=== PATIENT | female | born 1975 | race Caucasian/White ===

== ENCOUNTER 2020-03-10 11:25 | Outpatient (CLI) | payer MEDICAID, SELFPAY ==
--- NOTE | 2020-03-10 12:30 | XRR_ITS ---
PROCEDURE INFORMATION: Exam: XR Abdomen, 1 View Exam date and time: 03/10/2020 11:31 AM Age: 44 years old Clinical indication: Condition or disease; Kidney or ureter condition; Calculus (stone) in kidney; Prior surgery; Surgery type: Hyst, gb, lith; Additional info: Recurrent stones, f/u RT stone TECHNIQUE: Imaging protocol: XR of the abdomen. Views: Frontal supine view of the abdomen. 1 View. COMPARISON: CR XR KUB [id number] 08/05/2019 10:50 AM FINDINGS: Gastrointestinal tract: There is mildly increased stool noted in the ascending colon. Organs: Previously demonstrated right renal pelvic calculus not currently identified. The gallbladder is surgically absent, with metallic clips in the gallbladder fossa. Vasculature: Calcified phleboliths are present in the lower pelvis bilaterally. Bones/joints: No acute abnormality identified. XR/XR KUB [id number] IMPRESSION: 1. Previously demonstrated right renal pelvic calculus not currently radiographically identified. 2. Mild right abdominal colonic constipation. 3. Prior cholecystectomy.
== END 2020-03-10 11:26 | disposition home or self-care (01) ==
LOC: RAD 11:28
PROVIDERS: PCP Nurse Practitioner Family; Visit Provider Nurse Practitioner Family
DX: N20.0 Calculus of kidney (principal); K59.00 Constipation, unspecified
CPT/HCPCS: 74018; 81001

== ENCOUNTER 2020-03-11 09:39 | Outpatient (CLI) | payer MEDICAID, SELFPAY ==
--- NOTE | 2020-03-11 09:41 | CT_ITS ---
WS: [id number] CT ABDOMEN PELVIS TECHNIQUE: Noncontrast CT of the abdomen and pelvis with coronal and sagittal reformatted images. CLINICAL INFORMATION: Right flank pain COMPARISON: December 10, 2019 DLP: 1880.[address] scans at [facility] use at least one of these dose optimization techniques: automat ed exposure control; mA and/or kV adjustment per patient size (includes targeted exams where dose is matched to clinical indication); or iterative reconstruction. FINDINGS: Stable calculus right renal pelvis measuring 8.6 mm. This is unchanged from previous. Mild dilatation right renal pelvis is unchanged. Right ureter is decompressed. No obstructing left renal or ureteral parenchymal calculi. Left pelvic phlebolith adjacent to the left distal ureter. Right ovarian low-attenuation lesion likely ovarian cyst measuring 3.1 cm unchanged. This can be foll owed up with ultrasound. Normal sigmoid colon. No evidence of small or large bowel obstruction. Lung bases are well aerated. Calcific granuloma left lower lobe. Noncontrast liver is normal. Cholecy stectomy clips. Normal GE junction. Noncontrast spleen is normal. Normal adrenal glands. Noncontrast pancreas is unremarkable. Slight haziness along the mid mesentery with a few prominent lymph nodes al gracia the mesenteric root. This is unchanged. CT/CT kidney stone [id number] IMPRESSION: 1. Stable 8.6 mm right renal pelvic calculus. Mild dilatation right renal pelv is. 2. Prior cholecystectomy. 3. Haziness along the mid mesentery at the mesenteric root with a few prominen t lymph nodes unchanged from previous. 4. Right ovarian low-attenuation lesion measuring 3.1 cm likely ovarian cyst. This can be followed up with ultrasound. 5. No significant interval changes.
== END 2020-03-11 09:40 | disposition home or self-care (01) ==
LOC: RAD 09:40
PROVIDERS: PCP Nurse Practitioner Family; Visit Provider Nurse Practitioner Family
DX: R10.9 Unspecified abdominal pain (principal); N20.0 Calculus of kidney; N83.8 Other noninflammatory disorders of ovary, fallopian tube and broad ligament
CPT/HCPCS: 74176

== ENCOUNTER 2020-03-18 10:49 | Day surgery (SDC) | payer MEDICAID, SELFPAY ==
[2020-03-17 09:25] VITALS: BMI 35.5
[2020-03-18] VITALS (9 sets, daily range): BP systolic 129–150; BP diastolic 88–110; PULSE 88–102; RESP 14–24; TEMP 36.2–36.9; O2SAT 94–100
--- NOTE | 2020-03-18 11:40 | ANES.PREANE2 ---
Pre-Anesthetic Assessment Pre-Anesthetic Assessment: Height/Weight: Height 1.68 m Weight 99.79 kg Temp Pulse Resp BP Pulse Ox 97.8 F 91 18 129/88 98 03/18/20 11:21 03/18/20 11:21 03/18/20 11:21 03/18/20 11:21 03/18/20 11:21 Preop Diagnosis: Right renal colicky symptoms, renal pelvic stone Proposed Procedure: Operation Date: 03/18/20 12:30 Proposed Procedures p CYSTOSCOPY,RIGHT,RETROGRADE URETEROSCOPY,LASER,STENT [id number] MODIFIER 26/N20.0(Right) - Branden Gupta MD s RETROGRADE URETEROSCOPY(Right) - MD carleen tSarks Laser Lithotripsy(Right) - MD carleen Starks Ureteral Stent Placement(Right) - Branden Gupta MD Social: Social History: No alcohol and No tobacco Exam: Pre-Anes Outpt Exam: alert, oriented x 3, clear to auscultation bilaterally and regular rate & rhythm Airway: Submandibular: WNL Cervical ROM: WNL MP: 2 Dentition: Other (teeth ok) History/ROS: No significant history except as noted CV/HEM: CV/HEM: HTN : Comments: stones Hepatic: Comments: fatty liver GI: GI: GERD (controlled) Metabolic: Metabolic: DM and Hyperlipidemia Neuropsych: Neuropsych: None reported Anesthetic Plan: ASA status: 3 Anesthesia: Anesthesia Evaluation and General Risk of > 500 ml blood loss (7ml/kg in children): No PFSH Anesthesia PFSH: Medical History Right nephrolithiasis Uric acid urolithiasis Surgical History History of hysterectomy Hx of cholecystectomy Status post laser lithotripsy of ureteral calculus Family History Father Hypertension Diabetes CAD (coronary artery disease) Grandmother Cancer Grandfather Cancer Social History Smoking and tobacco status: never smoked Alcohol intake: never Adopted: No Caregiver/support person: No Lives independently: No Household members: spouse Marital status: Current occupational status: unemployed History of recent travel: No Current gender identity: Female Data Anesthesia Cardiac Studies: No Data to Display
[2020-03-18 11:56] LABS: Glucose Point of Care 191 mg/dL (70-110)
[2020-03-18] MEDS: sodium chloride 0.9% 1,000 ML 30 ML IV (12:01)
--- NOTE | 2020-03-18 12:58 | W.PM.OPSUD ---
Surgery/Procedure H&P Update DATE OF PROCEDURE: March 18, 2020 DATE H&P PERFORMED: 03/11/20 H&P UPDATE INFORMATION: I have reviewed H&P completed within last 30 days, No changes to prior documentation and H&P is in [facility] on date indicated PREOP DIAGNOSIS: Right renal colicky symptoms, renal pelvic stone PLANNED PROCEDURE: Operation Date: 03/18/20 12:30 Proposed Procedures p CYSTOSCOPY,RIGHT,RETROGRADE URETEROSCOPY,LASER,STENT [id number] MODIFIER 26/N20.0(Right) - Branden Gupta MD s RETROGRADE URETEROSCOPY(Right) - Branden Gupta MD s Laser Lithotripsy(Right) - MD carleen Starks Ureteral Stent Placement(Right) - Branden Gupta MD
[2020-03-18] MEDS: levofloxacin-dextrose 5 % 500 MG/100 ML PREMIX 100 MG IV (12:59)
--- NOTE | 2020-03-18 13:01 | P.OP_ITS ---
Operative Report Date of procedure: March 18, 2020 Pre-op Diagnosis: Right renal colicky symptoms, renal pelvic stone Post-op diagnosis: same Procedure Done: 1. Cystoscopy, right retrograde, ureteroscopic laser lithotripsy, stent Surgeon: Alonso Anesthesia: General Estimated blood loss: Minimal Urine output: Not measured Complications: None Condition: stable Disposition: PACU Brief History: The patient is a 44-year-old white female with history of recurrent urolithiasis stones who presents with intermittent right renal colicky symptoms and was found to have a radiolucent 8.6 mm renal pelvic stone. She preferred to have the stone treated. We reviewed treatment options including ESWL versus endoscopy. Based on body habitus and inability to easily identify the stone on fluoroscopy it was decided to proceed with endoscopic treatment with backup ESWL if necessary. Procedure: After routine preoperative evaluation examination and obtaining of informed consent she was taken to the operating suite on 03/18/2020 where general anesthesia was administered without difficulty after appropriate timeout was performed, SCDs confirmed to be functioning, preoperative antibiotics administered, beta-frantz protocol confirmed. Prepped and draped in usual sterile fashion in dorsolithotomy position pain careful attention to avoiding pressure points. 21 [place] cystoscope with 30 degree lens was introduced to the urethra meatus and advanced into the bladder under videoscopy. Bladder was systematically examined found to be within normal limits. A flexible tip guidewire was easily advanced up the right ureter and the distal ureter was dilated with a 15 [place] 4 cm balloon with no waist. A second guidewire was passed and then a 38 cm ureteral access sheath was advanced over the guidewire just below the UPJ. A flexible ureteroscope was advanced up the right ureter through the sheath into the renal pelvis over the working wire. The other wire had been secured to the drapes as a safety wire. The stone was identified and fragmented with a 273 ?m homing laser fiber into small enough pieces that should easily pass. A 2.0 [place] 0 tip basket was utilized to remove some of the fragments for specimen. There was a lot of sand in the collecting system and much of this was flushed through the ureteroscope out of the patient. The sheath was then backed off the scope onto the hub and the ureter was inspected as the scope was removed with no significant fragments identified. The cystoscope was backloaded over the safety wire and a 6 [place] by 26 cm double-pigtail stent was advanced over the guidewire through the cystoscope into appropriate position as confirmed via fluoroscopy and cystoscopy. Bladder was drained and the procedure completed. She tolerated the procedure well without complications and was awakened in the operating room and returned to the recovery room in stable condition. PLANS: 1. Discharge from outpatient surgery when recovered 2. Follow-up in approximately 1 week for stent removal with cystoscopy 3. Continue POTASSIUM CITRATE 15 mill equivalents twice a day
--- NOTE | 2020-03-18 14:12 | SUR.PHASEI ---
1407 PATIENT TO PACU AT THIS TIME FROM OR. RR EVEN AND UNLABORED. PLACED ON SIMPLE MASK AT 8L, SPO2 98%.
--- NOTE | 2020-03-18 14:41 | SUR.PHASEI ---
1433 PATIENT TO OPS AT THIS TIME. DENIES PAIN. RR EVEN AND UNLABORED.
== END 2020-03-18 15:20 | disposition home or self-care (01) ==
PROVIDERS: PCP Nurse Practitioner Family; Visit Provider Urology
PROC: 0TJB8ZZ Inspection of Bladder, Via Natural or Artificial Opening Endoscopic (ICD-10-PCS; CPT 52000; principal; 2020-03-18 12:30)
PROC: (CPT 52356; 2020-03-18 12:30)
PROC: (CPT 50605; 2020-03-18 12:30)
PROC: 0TJ98ZZ Inspection of Ureter, Via Natural or Artificial Opening Endoscopic (ICD-10-PCS; CPT 52351; 2020-03-18 12:30)
PROC: (CPT 74420; 2020-03-18 12:30)
DX: N20.0 Calculus of kidney (principal); I10 Essential (primary) hypertension; K21.9 Gastro-esophageal reflux disease without esophagitis; E11.9 Type 2 diabetes mellitus without complications; E78.5 Hyperlipidemia, unspecified; Z82.49 Family history of ischemic heart disease and other diseases of the circulatory system; Z83.3 Family history of diabetes mellitus; Z79.84 Long term (current) use of oral hypoglycemic drugs
CPT/HCPCS: 52356; 12345; 36416; 82962; 88300; C1725; C2625; J1956; J2704; J3010; J3490; J7030

== ENCOUNTER 2020-03-25 09:47 | Outpatient (CLI) | payer MEDICAID, SELFPAY ==
--- NOTE | 2020-03-25 10:00 | XR_ITS ---
WS: [id number] XR KUB [id number] REASON FOR EXAM: Stone FINDINGS: A stent is seen in the left kidney extends down to the bladder good position. No definite s tones are seen surrounding the stent. There is nonspecific abdominal findings. The left kidney appeared to be normal. XR/XR KUB [id number] IMPRESSION: Stent good position on the right side no obstructing stones are identified.
== END 2020-03-25 09:48 | disposition home or self-care (01) ==
LOC: RAD 09:50
PROVIDERS: PCP Nurse Practitioner Family; Visit Provider Urology
DX: N20.0 Calculus of kidney (principal); Z96.0 Presence of urogenital implants
CPT/HCPCS: 74018; 81001

== ENCOUNTER 2020-05-23 06:54 | Outpatient (CLI) | payer MEDICAID, SELFPAY ==
--- NOTE | 2020-05-23 07:19 | MM_ITS ---
WS: [id number] BILATERAL DIGITAL SCREENING MAMMOGRAPHY WITH CAD CLINICAL INFORMATION: SCREENING HISTORY: Screening mammogram. No current complaints. COMPARISON: None. TECHNIQUE: Bilateral CC and MLO views. FINDINGS: Scattered fibroglandular densities bilaterally. No suspicious focal mass, asymmetry, calcifications, or architectural distortion. No evidence of malignancy. Lucent centered calcifications. MM/[place] [id number] IMPRESSION: BI-RADS: 2-Benign FOLLOW UP: 1 Year Follow-up Recommend return to annual screening mammography.
== END 2020-05-23 06:55 | disposition home or self-care (01) ==
LOC: RADSHAW 06:58
PROVIDERS: PCP Nurse Practitioner Family; Visit Provider Nurse Practitioner Family
DX: Z12.31 Encounter for screening mammogram for malignant neoplasm of breast (principal); N20.0 Calculus of kidney
CPT/HCPCS: 77067; 80048; 81003; 82131; 82140; 82340; 82436; 82507; 82570; 83735; 83935; 84100; 84300; 84550

== ENCOUNTER 2023-05-17 14:38 | Emergency (ER) | payer BC, MEDICAID, SELFPAY ==
[2023-05-17 14:39] VITALS: BP 150/83; PULSE 93; RESP 18; TEMP 36.8; O2SAT 99; BMI 37.1
--- NOTE | 2023-05-17 14:44 | W.ED.ALLEREA ---
HPI - Allergic Reaction General: Chief complaint: Allergic Reaction Stated complaint: allergic reaction Time Seen by Provider: 05/17/23 14:43 Source: patient Mode of arrival: ambulatory History of Present Illness: HPI narrative: 47-year-old female presents emergency room after an allergic reaction. She was having allergy testing done at Dr. Jordan's office had a reaction she is unsure which particular test medium she reacted to. She was given epinephrine x2 Zyrtec Pepcid and 20 mg of prednisone as well as albuterol she is feeling much better no facial swelling or difficulty swallowing or speaking at this time no wheezing. No shortness of breath. MD complaint: allergic reaction Associated symptoms: Reports difficulty breathing, dysphagia and dizziness Severity: moderate Treatment prior to arrival: epinephrine, bronchodilator, steroids and other (h2 blockers) Review of Systems Const: Denies: fever(s), chills, body aches, change in appetite, fatigue or malaise ENMT: Denies: throat pain, ear or mastoid pain, nasal discharge or nasal congestion Card: Denies: chest pain, edema, dyspnea on exertion or orthopnea Resp: Denies: dyspnea, productive cough or non-productive cough GI: Reports: dysphagia : Denies: flank pain, difficulty voiding, dysuria, urinary frequency or urinary urgency Skin/Breast: Denies: rash or pruritus Neuro: Reports: dizziness PFSH ED PFSH: Medical History (Updated 05/17/23 @ 15:59 by Surendra Hernandez DO) Right nephrolithiasis Uric acid urolithiasis Surgical History History of hysterectomy Hx of cholecystectomy Status post laser lithotripsy of ureteral calculus Family History Father Hypertension Diabetes CAD (coronary artery disease) Grandmother Cancer Grandfather Cancer Social History Smoking and tobacco status: former smoker Alcohol intake: never Substance/Drug Use: unknown Adopted: No Caregiver/support person: No Lives independently: No Household members: spouse Marital status: Current occupational status: unemployed Current gender identity: Female Physical Exam Const: COMMON NORMALS: no acute distress GENERAL APPEARANCE: cooperative and comfortable ORIENTATION/CONSCIOUSNESS: Yes awake, Yes oriented to person, Yes oriented to place and Yes oriented to time HENMT: COMMON NORMALS: normocephalic, atraumatic and hearing grossly normal bilaterally HEAD & SCALP: normocephalic and atraumatic Resp: COMMON NORMALS: normal respiratory effort, No retractions, No use of accessory muscles and clear to auscultation bilaterally AUSCULTATION: clear to auscultation bilaterally Cardio: COMMON NORMALS: regular rate, regular rhythm and No murmurs present (Cardio) RATE: regular rate RHYTHM: regular rhythm GI: COMMON NORMALS: Soft to palpation and No hepatosplenomegaly present AUSCULTATION: Yes normoactive bowel sounds PALPATION: Yes Soft to palpation, No Tenderness to palpation present (GI), No Guarding due to palpation present (GI) and Yes No hepatosplenomegaly present Extremity: COMMON NORMALS: normal to inspection, capillary refill normal, no clubbing, cyanosis or edema, no calf tenderness and no pedal edema Neuro: SENSORIUM/ORIENTATION: Yes oriented to person, Yes oriented to place and Yes oriented to time Skin: COMMON NORMALS: no rashes or lesions noted GENERAL SKIN EXAM: no rashes or lesions noted Course Vital Signs: Vital signs: Vital Signs Temperature 98.2 F 05/17/23 14:39 Pulse Rate 93 05/17/23 14:39 Respiratory Rate 18 05/17/23 14:39 Blood Pressure 147/91 05/17/23 15:07 Pulse Oximetry 95 05/17/23 15:07 Oxygen Delivery Me thod Room Air 05/17/23 15:07 MDM - Allergic Reaction Medical Decision Making No further symptoms she was given Benadryl on arrival. She is had some hives on her forearms that are resolved. Breathing is improved no wheezing or rhonchi. Discharge patient home on steroid taper hydroxyzine. Return if has any recurrence or problems. Medical Records I reviewed the patient's medical records. Lab Data I reviewed the patient's lab results. Discharge Plan Discharge Patient Disposition: Home Clinical Impression: Allergic reaction Condition: Stable Prescriptions: New prednisone 20 mg tablet 20 mg PO TID Qty: 15 0RF Rx Instructions: 1 p.o. 3 times daily x3 days, 1 p.o. twice daily x2 days, 1 p.o. daily x2 days hydroxyzine HCl 25 mg tablet 25 mg PO QID PRN (Reason: itching) Qty: 20 0RF No Action metformin 1,000 mg tablet 1,000 mg PO BID omeprazole 40 mg capsule,delayed release(DR/EC) 40 mg PO DAILY cetirizine [All Day Allergy (cetirizine)] 10 mg tablet 10 mg PO DAILY estradiol 1 mg tablet 1.5 mg PO DAILY Rx Instructions: take 1 1/2 daily rosuvastatin [Crestor] 10 mg tablet 10 mg PO DAILY insulin asp prt-insulin aspart [Novolog Mix 70-30 U-100 Insuln] 100 unit/mL (70-30) solution 56 unit SUBCUT BID fluticasone propionate [Allergy Relief (fluticasone)] 50 mcg/actuation spray,suspension 1 spray intranasal BID Rx Instructions: administer into each nostril montelukast [Singulair] 10 mg tablet 10 mg PO DAILY meloxicam 7.5 mg tablet 7.5 mg PO DAILY sulfamethoxazole-trimethoprim [Bactrim DS] 800-160 mg tablet 1 tab PO BID 10 Days Qty: 20 0RF vlzyyxppfwrqcho-qhiysweif-CE [Bromfed DM] 2-30-10 mg/5 mL syrup 10 ml PO Q8H Qty: 473 0RF potassium citrate 15 mEq tablet extended release See Rx Instructions .ROUTE .COMPLEX Qty: 90 2RF Dose Instruction: TAKE 1 TABLET BY MOUTH THREE TIMES DAILY Rx Instructions: TAKE 1 TABLET BY MOUTH THREE TIMES DAILY Discharge Orders: Discharge ED (Routine); Ordered 05/17/23 Ordered By: Surendra Hernandez Referrals: Carlee Jean FNP [Primary Care Provider] - Discharge Diet: Usual diet Discharge Activity: Increase activity as tolerated Patient Instructions: Allergic Reaction, Allergy Testing (ED), Opioid Safety, Pain Management Activity Restrictions/Additional Instructions: Return if you have any further problems. Coding Level of Care Code ED Launching Pad Mechanic for Lai Burgos
[2023-05-17] MEDS: diphenhydrAMINE 50 mg/mL SDV 1mL IVP (14:53)
[2023-05-17 15:07] VITALS: BP 147/91; O2SAT 95
== END 2023-05-17 16:17 | disposition home or self-care (01) ==
PROVIDERS: Emergency Provider Family Medicine; PCP Nurse Practitioner Family
DX: T78.40XA Allergy, unspecified, initial encounter (principal); R13.10 Dysphagia, unspecified; R42 Dizziness and giddiness; Z87.891 Personal history of nicotine dependence; Z79.4 Long term (current) use of insulin; Z79.899 Other long term (current) drug therapy; Z79.84 Long term (current) use of oral hypoglycemic drugs
CPT/HCPCS: 96374; 99284; J1200

== ENCOUNTER → 2024-04-01 13:23 | Outpatient (BNVA) | payer BC, MEDICAID, SELFPAY | PROVIDERS: PCP Nurse Practitioner Family; Referring Provider Nurse Practitioner Family; Visit Provider Specialist | DX: G56.03 Carpal tunnel syndrome, bilateral upper limbs (principal) | CPT/HCPCS: 73130 ==

== ENCOUNTER 2024-05-04 10:05 | Outpatient (RCR) | payer OTHER, MEDICAID, SELFPAY | END 2024-05-20 23:59 | disposition home or self-care (01) | LOC: SPT 10:05 | PROVIDERS: PCP Nurse Practitioner Family; Visit Provider Nurse Practitioner Family | DX: M54.32 Sciatica, left side (principal) | CPT/HCPCS: 97110; 97161 ==

== ENCOUNTER 2024-05-21 06:00 | Outpatient (RCR) | payer OTHER, MEDICAID, SELFPAY | END 2024-06-20 23:59 | disposition home or self-care (01) | LOC: SPT 06:00 | PROVIDERS: PCP Nurse Practitioner Family; Visit Provider Nurse Practitioner Family | DX: M54.32 Sciatica, left side (principal) | CPT/HCPCS: 97110 ==

== ENCOUNTER 2024-06-21 06:00 | Outpatient (RCR) | payer OTHER, MEDICAID, SELFPAY | END 2024-07-20 23:59 | disposition home or self-care (01) | LOC: SPT 06:00 | PROVIDERS: PCP Nurse Practitioner Family; Visit Provider Nurse Practitioner Family | DX: M54.32 Sciatica, left side (principal) | CPT/HCPCS: 97110 ==

== ENCOUNTER 2024-07-21 06:00 | Outpatient (RCR) | payer OTHER, BC, MEDICAID, SELFPAY | END 2024-08-20 23:59 | disposition home or self-care (01) | LOC: SPT 06:00 | PROVIDERS: PCP Nurse Practitioner Family; Visit Provider Nurse Practitioner Family | DX: M54.32 Sciatica, left side (principal) | CPT/HCPCS: 97110 ==

== ENCOUNTER 2024-08-21 06:52 | Outpatient (CLI) | payer OTHER, BC, MEDICAID, SELFPAY ==
--- NOTE | 2024-08-21 07:00 | MR_ITS ---
WS: [id number] MRI LEFT KNEE NONCONTRAST TECHNIQUE: Axial PD, coronal PD fat sat, coronal PD, sagittal PD, and sagittal PD fat-sat images obta ined. CLINICAL INFORMATION: LEFT KNEE PAIN COMPARISON: None. FINDINGS: Distal quadriceps and patella tendons are intact. Hypertrophic patella. Normal ACL and PCL. Moderate chondromalacia patella with chondral fissuring. No subchondral edema. Normal medial and lateral gregg lar retinaculum. Mild tricompartmental arthritis. Chronic intrasubstance signal abnormality anterior horn lateral meni scus. Chronic thinning of the medial meniscus. Fibular head is normal in appearance. Normal popliteal fossa. Normal lateral collateral ligament. Normal medial collateral ligament. Normal popliteus. MR/MR knee LT wo con* [id number] IMPRESSION: 1. Normal ACL and PCL. 2. Chronic intrasubstance signal normality involving the anterior horn lateral meniscus. No acute appearing meniscal tears. 3. Normal medial and lateral collateral ligaments. 4. 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 Outbridge grading: grade III: partial-thickness cartilage loss with focal ulcer ation
== END 2024-08-21 06:53 | disposition home or self-care (01) ==
PROVIDERS: PCP Nurse Practitioner Family; Visit Provider Nurse Practitioner Family
DX: M22.42 Chondromalacia patellae, left knee (principal)
CPT/HCPCS: 73721

== ENCOUNTER → 2024-09-02 14:19 | Outpatient (BNVA) | payer OTHER, BC, MEDICAID, SELFPAY | PROVIDERS: PCP Nurse Practitioner Family; Visit Provider Specialist | DX: M25.562 Pain in left knee (principal); M17.12 Unilateral primary osteoarthritis, left knee; M22.42 Chondromalacia patellae, left knee | CPT/HCPCS: 73560; 73565 ==

== ENCOUNTER 2024-09-10 08:23 | Outpatient (RCR) | payer OTHER, SELFPAY | END 2024-09-19 23:59 | disposition home or self-care (01) | LOC: SPT 08:23 | PROVIDERS: Visit Provider Specialist | DX: M17.12 Unilateral primary osteoarthritis, left knee (principal) | CPT/HCPCS: 97110; 97161 ==

== ENCOUNTER 2024-09-20 06:00 | Outpatient (RCR) | payer OTHER, SELFPAY | END 2024-10-20 23:59 | disposition home or self-care (01) | LOC: SPT 06:00 | PROVIDERS: Visit Provider Specialist | DX: M17.12 Unilateral primary osteoarthritis, left knee (principal) | CPT/HCPCS: 97110 ==

== ENCOUNTER 2024-10-21 06:00 | Outpatient (RCR) | payer OTHER, SELFPAY | END 2024-11-02 23:59 | disposition home or self-care (01) | LOC: SPT 06:00 | PROVIDERS: Visit Provider Specialist | DX: M17.12 Unilateral primary osteoarthritis, left knee (principal) | CPT/HCPCS: 97110 ==

== ENCOUNTER 2024-11-12 09:47 | Emergency (ER) | payer BC, MEDICAID, SELFPAY ==
[2024-11-12 10:01] VITALS: BP 123/73; PULSE 111; RESP 16; TEMP 37.7; O2SAT 94; BMI 38.7
--- NOTE | 2024-11-12 10:07 | XR_ITS ---
WS: [id number] Portable AP upright chest, 11/12/2024 Clinical Data: sob Comparison: Portable chest, 04/05/2018 Findings: No nodules, masses or effusions are seen. The heart is normal. The pulmonary vascularity is not increased. No pneumonia or pneumothorax is seen. XR/XR chest 1V portable [id number] Impression: Negative chest.
[2024-11-12 10:09] VITALS: BP 123/73; PULSE 111; RESP 16; TEMP 37.7; O2SAT 94
--- NOTE | 2024-11-12 10:23 | ED_ITS ---
HPI - URI/Sore Throat General: Chief Complaint: Upper Respiratory Infection Stated Complaint: sob, flu symptoms Time Seen by Provider: 11/12/24 10:14 History of Present Illness: 49-year-old female presents with cough, shortness of breath this been going on for couple days. 3 days ago she was seen at urgent care diagnosed with a viral infection and given a steroid shot. She reports that she still having a cough and feeling short of breath. Associated symptoms: Deny abdominal pain or chest pain Related Data Home Medications Medication Instructions Recorded Confirmed benzonatate 200 mg capsule 200 mg PO TID 11/12/24 11/12/24 cetirizine 10 mg tablet 10 mg PO DAILY 11/12/24 11/12/24 dulaglutide 0.75 mg/0.5 mL 0.75 mg SUBCUT Q7D 11/12/24 11/12/24 subcutaneous pen injector (Trulicity) duloxetine 20 mg capsule,delayed 20 mg PO DAILY 11/12/24 11/12/24 release estradiol 1 mg tablet 1 mg PO DAILY 11/12/24 11/12/24 glyburide 2.5 mg tablet 2.5 mg PO DAILY 11/12/24 11/12/24 hydroxyzine HCl 25 mg tablet 25 mg PO TID 11/12/24 11/12/24 insulin aspar prot-insulin aspart 60 unit SUBCUT BID 11/12/24 11/12/24 100 unit/mL (70-30) subcutaneous pen lisinopril 2.5 mg tablet 2.5 mg PO DAILY 11/12/24 11/12/24 meloxicam 15 mg tablet 15 mg PO DAILY 11/12/24 11/12/24 montelukast 10 mg tablet 10 mg PO DAILY 11/12/24 11/12/24 mupirocin 2 % topical ointment 1 applic topical TID 11/12/24 11/12/24 ofloxacin 0.3 % eye drops 10 drp otic (ear) DAILY 11/12/24 11/12/24 omeprazole 40 mg capsule,delayed 40 mg PO DAILY 11/12/24 11/12/24 release rosuvastatin 20 mg tablet 20 mg PO DAILY 11/12/24 11/12/24 Allergies Allergy/AdvReac Type Severity Reaction Status Date / Time cephalexin [From Keflex] Allergy ALGY-Hives Verified 11/12/24 10:01 clindamycin Allergy Unknown Verified 11/12/24 10:01 Penicillins Allergy Unknown Verified 11/12/24 10:01 hydrocodone AdvReac ADR-Vomitin Verified 11/12/24 10:01 g Review of Systems Const: Reports: body aches Card: Denies: chest pain Resp: Reports: dyspnea, non-productive cough and wheezing GI: Denies: abdominal pain PFSH ED PFSH: Medical History (Updated 11/12/24 @ 11:11 by Robb Greenfield DO) Uric acid urolithiasis Right nephrolithiasis Surgical History Status post laser lithotripsy of ureteral calculus Hx of cholecystectomy History of hysterectomy Family History Father Hypertension Diabetes CAD (coronary artery disease) Grandmother Cancer Grandfather Cancer Social History Smoking and tobacco/nicotine status: never used tobacco/nicotine Alcohol intake: never Substance/Drug Use: unknown Adopted: No Caregiver/support person: No Lives independently: No Household members: spouse Marital status: Current occupational status: unemployed Current gender identity: Female Physical Exam Const: COMMON NORMALS: no acute distress NUTRITIONAL APPEARANCE: obese Resp: AUSCULTATION: wheezes scattered wheezes and diminished lung sounds Cardio: COMMON NORMALS: regular rate and regular rhythm RATE: regular rate RHYTHM: regular rhythm Extremity: COMMON NORMALS: full ROM and capillary refill normal Neuro: COMMON NORMALS: moves all extremities and no focal motor deficits Psych: COMMON NORMALS: mental status grossly normal and normal affect Skin: COMMON NORMALS: no rashes or lesions noted GENERAL SKIN EXAM: no rashes or lesions noted Course Vital Signs: Vital signs: Vital Signs Temperature 99.9 F H 11/12/24 10:09 Pulse Rate 105 H 11/12/24 10:50 Respiratory Rate 16 11/12/24 10:50 Blood Pressure 123/73 11/12/24 10:09 Pulse Oximetry 96 11/12/24 10:50 Oxygen Delivery Me thod Room Air 11/12/24 10:50 MDM - URI/Sore Throat Medical Decision Making Patient's diagnostic studies were ordered and reviewed. She is positive for influenza A. She is outside the window for Tamiflu. Discussed with her supportive care. Patient's O2 is in mid to upper 90s with no signs of respiratory distress. Patient with a negative chest x-ray. Patient stable and discharged home Lab Data Radiology Impressions Chest X-Ray 11/12/24 10:07 Impression: Negative chest. Laboratory Results Coronavirus (PCR) Negative (Negative) 11/12/24 10:09 Influenza A (PCR) Positive (Negative) 11/12/24 10:09 Influenza Type B (PCR) Negative (Negative) 11/12/24 10:09 RSV (PCR) Negative (Negative) 11/12/24 10:09 All radiology interpretation(s) finalized by discharge Discharge Plan Discharge Patient Disposition: Home Clinical Impression: Influenza Condition: Stable Prescriptions: No Action cetirizine 10 mg tablet 10 mg PO DAILY ofloxacin 0.3 % drops 10 drp otic (ear) DAILY benzonatate 200 mg capsule 200 mg PO TID glyburide 2.5 mg tablet 2.5 mg PO DAILY meloxicam 15 mg tablet 15 mg PO DAILY omeprazole 40 mg capsule,delayed release(DR/EC) 40 mg PO DAILY estradiol 1 mg tablet 1 mg PO DAILY montelukast 10 mg tablet 10 mg PO DAILY hydroxyzine HCl 25 mg tablet 25 mg PO TID mupirocin 2 % ointment 1 applic TOPICAL TID lisinopril 2.5 mg tablet 2.5 mg PO DAILY insulin asp prt-insulin aspart 100 unit/mL (70-30) insulin pen 60 unit SUBCUT BID rosuvastatin 20 mg tablet 20 mg PO DAILY duloxetine 20 mg capsule,delayed release(DR/EC) 20 mg PO DAILY Trulicity 0.75 mg/0.5 mL pen injector 0.75 mg SUBCUT Q7D Discharge Orders: Discharge ED (Routine); Ordered 11/12/24 Ordered By: Robb Greenfield Patient Instructions: Opioid Safety, Pain Management Coding Level of Care Code ED Emergency Worker for Lai Burgos
[2024-11-12 10:50] VITALS: PULSE 105; RESP 16; O2SAT 96
[2024-11-12] MEDS: ipratropium-albuterol 3 mL Neb INHALATION (10:50)
[2024-11-12 10:57] LABS: Covid PCR NEGATIVE (Negative); Influenza A POSITIVE (Negative); Influenza B NEGATIVE (Negative); Respiratory Syncytial Virus Ce NEGATIVE (Negative)
[2024-11-12 11:25] VITALS: BP 117/70; PULSE 116; O2SAT 95
== END 2024-11-12 11:30 | disposition home or self-care (01) ==
PROVIDERS: Emergency Medicine; Emergency Provider Student in an Organized Health Care Education/Training Program
DX: J10.1 Influenza due to other identified influenza virus with other respiratory manifestations (principal); Z11.52 Encounter for screening for COVID-19; Z79.4 Long term (current) use of insulin
CPT/HCPCS: 71045; 87637; 94640; 99283

== ENCOUNTER 2024-12-24 11:11 | Outpatient (CLI) | payer OTHER, SELFPAY ==
--- NOTE | 2024-12-24 11:14 | MM_ITS ---
WS: [id number] SCREENING DIGITAL BREAST TOMOSYNTHESIS MAMMOGRAM WITH CAD HISTORY: SCREEN COMPARISON: 05/23/2020 Bilateral CC and MLO with tomosynthesis and synthetic mammography submitted. Computer aided detection analyzed. Breast composition: There are scattered areas of fibroglandular density. New well-circumscribed 6 x 7 mm mass in the medial RIGHT breast near the nipple line. Not as well visualized on the lateral projection. Mass is at a middle depth with no calcifications. There are a few additional scattered masses and calcifications which are stable since 2019. MM/MM scr tomosynthesis [id number] IMPRESSION: BI-RADS: 3 - Probably Benign. FOLLOW UP: Need Additional Imaging RIGHT breast: Spot compression views (CC and MLO). True ML. Ultrasound to follo w if abnormality persists.
== END 2024-12-24 11:12 | disposition home or self-care (01) ==
LOC: RAD 11:12
PROVIDERS: PCP Nurse Practitioner Family; Visit Provider Nurse Practitioner Family
DX: Z12.31 Encounter for screening mammogram for malignant neoplasm of breast (principal); R92.323 Mammographic fibroglandular density, bilateral breasts; N63.10 Unspecified lump in the right breast, unspecified quadrant; R92.1 Mammographic calcification found on diagnostic imaging of breast
CPT/HCPCS: 77063; 77067

== ENCOUNTER 2025-01-18 10:49 | Outpatient (CLI) | payer BC, MEDICAID, SELFPAY ==
--- NOTE | 2025-01-18 | MM_ITS ---
WS: [id number] ADDITIONAL VIEWS RIGHT MAMMOGRAM WITH DIGITAL BREAST TOMOSYNTHESIS. RIGHT BREAST ULTRASOUND HISTORY: ABNORMAL MAMMOGRAM COMPARISON: 12/24/2024, 05/23/2020 RIGHT MAMMOGRAM: Spot compression views and true ML with digital breast tomosynthesis and SM. Breast composition: There are scattered areas of fibroglandular density. Well-circumscribed mass measuring 7 x 8 x 9 mm in the medial RIGHT breast near 3-4 o'clock at a middle depth. No associated calcifications or distortion. Mass is of increased density. The remaining breast is negative. RIGHT BREAST ULTRASOUND 2-D and color Doppler imaging submitted. Mass is noted on ultrasound at 3:00 measuring 6 x 4 x 3 mm. No increased vascularity. This does correspond to the location of the mammographic abnormality but not the size. No corresponding size mass identified. MM/MM diag RT tomosynthesis [id number] IMPRESSION: BI-RADS: 3 - Probably Benign. FOLLOW UP: 6 Month Follow-up Recommend diagnostic RIGHT mammogram follow-up in 6 months with possible ultras ound.
--- NOTE | 2025-01-18 10:59 | US_ITS ---
WS: [id number] ADDITIONAL VIEWS RIGHT MAMMOGRAM WITH DIGITAL BREAST TOMOSYNTHESIS. RIGHT BREAST ULTRASOUND HISTORY: ABNORMAL MAMMOGRAM COMPARISON: 12/24/2024, 05/23/2020 RIGHT MAMMOGRAM: Spot compression views and true ML with digital breast tomosynthesis and SM. Breast composition: There are scattered areas of fibroglandular density. Well-circumscribed mass measuring 7 x 8 x 9 mm in the medial RIGHT breast near 3-4 o'clock at a middle depth. No associated calcifications or distortion. Mass is of increased density. The remaining breast is negative. RIGHT BREAST ULTRASOUND 2-D and color Doppler imaging submitted. Mass is noted on ultrasound at 3:00 measuring 6 x 4 x 3 mm. No increased vascularity. This does correspond to the location of the mammographic abnormality but not the size. No corresponding size mass identified. US/US breast RT limited* [id number] IMPRESSION: BI-RADS: 3 - Probably Benign. FOLLOW UP: 6 Month Follow-up Recommend diagnostic RIGHT mammogram follow-up in 6 months with possible ultras ound.
== END 2025-01-18 10:50 | disposition home or self-care (01) ==
PROVIDERS: PCP Nurse Practitioner Family; Visit Provider Nurse Practitioner Family
DX: R92.8 Other abnormal and inconclusive findings on diagnostic imaging of breast (principal); R92.323 Mammographic fibroglandular density, bilateral breasts; N63.15 Unspecified lump in the right breast, overlapping quadrants
CPT/HCPCS: 76642; 77061; G0279

== ENCOUNTER 2025-08-17 10:20 | Outpatient (CLI) | payer BC, MEDICAID, SELFPAY ==
--- NOTE | 2025-08-17 10:26 | MM_ITS ---
WS: [id number] ADDITIONAL VIEWS RIGHT MAMMOGRAM WITH DIGITAL BREAST TOMOSYNTHESIS. RIGHT BREAST ULTRASOUND HISTORY: ABNORMAL MAMMOGRAM, 6-month follow-up COMPARISON: 12/24/2024, 01/18/2025 RIGHT MAMMOGRAM: Spot compression views and true ML with digital breast tomosynthesis and SM. Breast composition: There are scattered areas of fibroglandular density. Reidentified is the mass in the medial RIGHT breast just below the nipple line. Mass measures 6 x 7 x 7 mm and has not changed significantly in size since the prior study. No distortion. No development of suspicious calcifications. RIGHT BREAST ULTRASOUND 2-D and color Doppler imaging submitted. Reidentified is a hypoechoic mass which may be a lymph node at 3:00, 4 cm from the nipple. Mass measures 0.6 x 0.4 x 0.6 cm. Mass measures slightly smaller than the mammographic abnormality. This does correspond to the same location. No increase in size. MM/MM diag RT tomosynthesis [id number] IMPRESSION: BI-RADS: 3 - Probably Benign. FOLLOW UP: 6 Month Follow-up 1. No change in size of the well-circumscribed mass in the medial RIGHT breast which may be a lymph node. Recommend 6-month follow-up which will be time for the annual mammogram. Ultrasound evaluation of the RIGHT breast mass should be performed at that time also.
== END 2025-08-17 10:21 | disposition home or self-care (01) ==
LOC: RAD 10:21
PROVIDERS: PCP Nurse Practitioner Family; Visit Provider Nurse Practitioner Family
DX: R92.8 Other abnormal and inconclusive findings on diagnostic imaging of breast (principal); R92.321 Mammographic fibroglandular density, right breast; N63.10 Unspecified lump in the right breast, unspecified quadrant; N63.15 Unspecified lump in the right breast, overlapping quadrants
CPT/HCPCS: 76642; 77061; G0279